=== PATIENT | female | born 1970 | race Caucasian/White ===

== ENCOUNTER 2017-03-25 09:38 | Emergency (ER) | payer OTHER, MEDICARE ==
[~2017-03-25] VITALS: Ht 157.5 cm; Wt 49.9 kg
[2017-03-25 09:51] VITALS: BP 155/91
--- NOTE | 2017-03-25 10:25 | PHYS DOC ---
General Chief Complaint: LOWER EXTREMITY SWELLING Stated Complaint: LEFT LEG PAIN Time Seen by MD: 09:55 Source: patient Exam Limitations: no limitations Problems: History of Present Illness Initial Comments Pt is 46/F to ED c/o left leg pain/swelling. Pt states approximately two weeks ago she noticed swelling superolateral to her left patella. She denies any injury or other potential inciting event. Thru the course of the past two weeks the swelling has worsened and pt feels an area in her posterior left calf "that feels like a million little needles." She is able to walk with discomfort. No knee or ankle joint pains, no popping/ clicking or joint instability. She had similar symptoms in the past which resolved spontaneously without seeking medical assistance. She says she would wait this situation out as well but her daughter is getting in two weeks and she is hoping to resolve this quickly. [facility] and [facility] directed to the ED to r/o DVT. Pt denies fever/chills/malaise/lethargy/weakness/cp/sob/diaz/focal neurologic deficit. Pt takes ASA daily, denies other chronic medical problems. No smoking history, pt hasn't been sedentary is normally very active and denies FH rheumatologic/hematologic disorders. Onset: other Severity: moderate Pain/Injury Location: left knee, left foot, left ankle Method of Injury: unknown Modifying Factors: worse with jarring, worse with movement, improves with rest Allergies: Coded Allergies: No Known Drug Allergies (Unverified , 03/25/17) Past Medical History Medical History: no pertinent history Surgical History: noncontributory (CS, LEEP) Social History Smoker: non-smoker Alcohol: occasionally Drugs: none Review of Systems Constitutional: denies chills, denies diaphoresis, denies fever, denies malaise EENTM: denies eye pain, denies double vision, denies ear pain, denies nose pain Respiratory: denies cough, denies shortness of breath, denies wheezing Cardiovascular: see HPI, denies chest pain, denies palpitations, denies syncope Gastrointestinal: denies abdominal pain, denies nausea, denies vomiting Musculoskeletal: see HPI Psychiatric/Neurological: denies headache, denies numbness, denies paresthesia Physical Exam General Appearance: WD/WN, no apparent distress HEENT: normal ENT inspection Neck: non-tender, supple Cardiovascular/Respiratory: normal peripheral pulses, no respiratory distress Back: no CVA tenderness, no vertebral tenderness Knees: left knee joint effusion (1+), left knee swelling, left knee other ( exam limited by calf pain: no bony TTP or obvious ligamentous laxity, no soft tissue TTP) Ankles: left ankle soft tissue tenderness, left ankle swelling Feet: left foot soft tissue tenderness, left foot swelling (left foot/ankle +3 pitting LE edema with +Shae's, no palpable soft tissue or bony deformity) Neurologic/Tendon: normal sensation, normal motor functions, normal tendon functions, responds to pain, no evidence tendon injury Psychiatric: alert, oriented x 3 Skin: warm/dry (no erythema or rash) Orders, Labs, Meds Left Ankle, Left Knee: no acute osseous abnormality, interpreted by Dr Zuleta. 1131: Time in department 1h 55min. US and labs remain pending, pt will have prolonged ED course due to RAD and lab delay. PATIENT: ALEX ALVARADO ACCOUNT: [id number] : 1970 LOCATION: ER AGE: 46 SEX: F EXAM STATUS: REG ER ORD. PHYSICIAN: DULCE ZULETA DO REASON: pain/swelling PROCEDURE: VENOUS LOWER EXTREMITY LEFT Left lower extremity venous duplex study 03/25/2017 Clinical History: Left leg swelling for 2 weeks.. Technique: Using a combination of real time ultrasound imaging and color-flow and pulse Doppler imaging techniques along with graded compression and augmentation, duplex evaluation of the deep venous system of the left lower extremity was performed. Multiple images were obtained. Findings: There is no sonographic evidence of deep venous thrombosis involving the visualized deep venous structures of the left lower extremity. Prominent likely reactive lymph nodes are seen in the left inguinal region. These measure 1 to 2.2 cm in size. Complex oval-shaped cystic structures are seen within the superior left calf which measure 7.3, 4 and 3 cm in size. These may represent popliteal cysts. Fluid is seen in the region of the suprapatellar bursa extending laterally. Impression: There is no sonographic evidence of deep venous thrombosis involving the visualized deep venous structures of the left lower extremity. DICTATED AND SIGNED BY: ABEL FLOREZ MD DATE: 03/25/17 1201 CC: DULCE ZULETA DO; SABA SALAZAR ~ d-dimer 5.56, CRP 100.7, ESR 69 No new or progressive sx thru ED course. I discussed findings with pt at length. No trauma, +swelling and elevation of inflammatory markers. I discussed treatment options, pt refuses crutches and is resistant to any activity or work restrictions. Steroids started empirically, pt will follow closely with her doctor. VSS thru ED course. Departure Time of Disposition: 13:16 Disposition: 01 HOME, SELF-CARE Diagnosis: left leg swelling NOS Condition: GOOD Patient Instructions: Crutch Use, [id number] Additional Instructions: Nonweight bearing crutches only. Keep left leg elevated. JENNIFER hose/compression stockings. Rx: prednisone, norco 5mg #10 Follow up with your doctor tomorrow for recheck. May need orthopedics. Return to ED with new or changing symptoms. DULCE ZULETA DO Mar 25, 2017 10:25
--- NOTE | 2017-03-25 10:59 | RAD ---
Three-view left ankle radiographs 03/25/2017 Clinical history: Left ankle pain with swelling for 2 weeks. AP, lateral and oblique digital radiographs of the left ankle were obtained. The left ankle mortise is intact. No fracture or dislocation of the left ankle is seen. Very mild degenerative changes are seen involving the left ankle joint. Impression: No fracture or dislocation of the left ankle is seen.
--- NOTE | 2017-03-25 11:02 | RAD ---
Three-view left knee radiographs 03/25/2017 Clinical history: Left knee pain and swelling for 2 weeks. AP, lateral and oblique digital radiographs of the left knee were obtained. No fracture or dislocation of the left knee is seen. There is to be small to moderate-sized left suprapatellar joint effusion. Very mild degenerative changes are seen involving all 3 compartments of the left knee. Impression: No acute osseous abnormality is seen.
[2017-03-25 11:04] LABS: BASO # 0.1 x10^3/uL (0.0-0.2); BASO % 1 % (0-3); EOS # 0.1 x10^3/uL (0.0-0.7); EOS % 2 % (0-3); HEMATOCRIT 41.7 % (36.0-47.0); HEMOGLOBIN 13.8 g/dL (12.0-15.5); LYMPH % 18 % (24-48); MEAN CORPUSCULAR HEMOGLOBIN 33 pg (25-35); MEAN CORPUSCULAR HGB CONC 33 g/dL (31-37); MEAN CORPUSCULAR VOLUME 99 fL (79-100); MONO # 0.7 x10^3/uL (0.0-1.1); MONO % 12 % (0-9); NEUT # 3.7 x10^3uL (1.8-7.7); NEUT % 67 % (31-73); PLATELET COUNT 319 x10^3/uL (140-400); RED BLOOD COUNT 4.21 x10^6/uL (3.50-5.40); RED CELL DISTRIBUTION WIDTH 13.7 % (11.5-14.5); WHITE BLOOD COUNT 5.6 x10^3/uL (4.0-11.0)
[2017-03-25 11:10] LABS: C REACTIVE PROTEIN 100.7 mg/L (0-3.3); CREATININE 0.7 mg/dL (0.6-1.0); GFR 90.5; POTASSIUM 3.8 mmol/L (3.5-5.1)
--- NOTE | 2017-03-25 12:09 | RAD ---
Left lower extremity venous duplex study 03/25/2017 Clinical History: Left leg swelling for 2 weeks.. Technique: Using a combination of real time ultrasound imaging and color-flow and pulse Doppler imaging techniques along with graded compression and augmentation, duplex evaluation of the deep venous system of the left lower extremity was performed. Multiple images were obtained. Findings: There is no sonographic evidence of deep venous thrombosis involving the visualized deep venous structures of the left lower extremity. Prominent likely reactive lymph nodes are seen in the left inguinal region. These measure 1 to 2.2 cm in size. Complex oval-shaped cystic structures are seen within the superior left calf which measure 7.3, 4 and 3 cm in size. These may represent popliteal cysts. Fluid is seen in the region of the suprapatellar bursa extending laterally. Impression: There is no sonographic evidence of deep venous thrombosis involving the visualized deep venous structures of the left lower extremity.
[2017-03-25 12:10] LABS: SEDIMENTATION RATE 69 (0-25)
== END 2017-03-25 13:31 | disposition home or self-care (01) ==
LOC: ER 09:38
DX: R22.42 Localized swelling, mass and lump, left lower limb (principal); M79.605 Pain in left leg
CPT/HCPCS: 36415; 73562; 73610; 80048; 83605; 85025; 85379; 85651; 86140; 93971; 99285-25

== ENCOUNTER → 2017-09-28 | Outpatient (CLI) | payer OTHER, MEDICARE ==
[2017-09-28 22:04] LABS: BILIRUBIN,URINE NEG (NEG); CLARITY,URINE CLEAR; COLOR,URINE STRAW; GLUCOSE,URINE NEG (NEG); NITRITE,URINE NEG (NEG); RBC,URINE RARE /HPF (0-2); UROBILINOGEN,URINE 0.2 mg/dL (0.2 mg/dL)
[2017-09-28 22:05] LABS: BACTERIA,URINE FEW /HPF (0-FEW); SQUAMOUS EPITHELIAL CELL,UR MANY /LPF; WBC,URINE OCC /HPF (0-4)
[2017-09-29 01:08] LABS: C3 COMPLEMENT 110 mg/dL (82-167); C4 COMPLEMENT 23 mg/dL (14-44)
[2017-09-29 09:07] LABS: UR CREATININE RD 22.8 mg/dL (Not Estab.); UR PROTEIN RD <4.0 mg/dL (Not Estab.)
[2017-10-01 15:07] LABS: RNP ANTIBODY <0.2 AI (0.0-0.9); SCL 70 ANTIBODY <0.2 AI (0.0-0.9); SMITH ANTIBODY <0.2 AI (0.0-0.9); SSA ANTIBODY <0.2 AI (0.0-0.9); SSB ANTIBODY <0.2 AI (0.0-0.9)
== END | disposition home or self-care (01) ==
LOC: LAB 15:24
DX: R76.8 Other specified abnormal immunological findings in serum (principal)
CPT/HCPCS: 36415; 81001; 82570; 84156; 86160; 86235; 87801

== ENCOUNTER → 2018-09-12 | Outpatient (CLI) | payer MEDICARE, OTHER ==
[2018-09-12 10:12] LABS: BASO # 0.1 x10^3/uL (0.0-0.2); BASO % 1 % (0-3); EOS # 0.1 x10^3/uL (0.0-0.7); EOS % 1 % (0-3); HEMATOCRIT 41.2 % (36.0-47.0); HEMOGLOBIN 13.9 g/dL (12.0-15.5); LYMPH % 17 % (24-48); MEAN CORPUSCULAR HEMOGLOBIN 33 pg (25-35); MEAN CORPUSCULAR HGB CONC 34 g/dL (31-37); MEAN CORPUSCULAR VOLUME 97 fL (79-100); MONO # 0.6 x10^3/uL (0.0-1.1); MONO % 11 % (0-9); NEUT # 4.1 x10^3uL (1.8-7.7); NEUT % 70 % (31-73); PLATELET COUNT 367 x10^3/uL (140-400); RED BLOOD COUNT 4.26 x10^6/uL (3.50-5.40); RED CELL DISTRIBUTION WIDTH 14.2 % (11.5-14.5); WHITE BLOOD COUNT 5.8 x10^3/uL (4.0-11.0)
[2018-09-12 10:20] LABS: ALBUMIN 3.7 g/dL (3.4-5.0); ALBUMIN/GLOBULIN RATIO 0.8 (1.0-1.7); C REACTIVE PROTEIN 88.7 mg/L (0-3.3); CALCIUM 9.8 mg/dL (8.5-10.1); CREATININE 0.7 mg/dL (0.6-1.0); GFR 89.7; POTASSIUM 4.1 mmol/L (3.5-5.1); TOTAL BILIRUBIN 0.7 mg/dL (0.2-1.0); TOTAL PROTEIN 8.1 g/dL (6.4-8.2); URIC ACID 3.2 mg/dL (2.6-6.0)
[2018-09-12 11:27] LABS: SEDIMENTATION RATE 43 (0-25)
== END | disposition home or self-care (01) ==
LOC: LAB 09:38
PROVIDERS: ATTEND Nurse Practitioner Family
DX: M25.462 Effusion, left knee (principal)
CPT/HCPCS: 36415; 80053; 84550; 85025; 85651; 86140

== ENCOUNTER → 2018-10-08 | Outpatient (CLI) | payer MEDICARE, OTHER ==
--- NOTE | 2018-10-08 16:51 | RAD ---
Examination: CT of the left knee without contrast HISTORY: History of osteoarthritis left knee, knee joint effusion COMPARISON: None available TECHNIQUE: Axial CT images of the left knee was performed without contrast. Coronal and sagittal reformats are performed Exposure: One or more of the following individualized dose reduction techniques were utilized for this examination: 1. Automated exposure control 2. Adjustment of the mA and/or kV according to patient size 3. Use of iterative reconstruction technique FINDINGS: The alignment of the knee joint grossly appears unremarkable. No acute fracture or dislocation identified. Mild joint space loss identified in the medial compartment of the knee joint. Moderate knee joint effusion identified. The extensor mechanism appears intact. IMPRESSION: 1. Moderate knee joint effusion. 2. Mild degenerative changes medial compartment. Electronically signed by: Sudhakar Bardales MD (10/08/2018 4:48 PM) [id number]
== END | disposition home or self-care (01) ==
LOC: CT 15:21
PROVIDERS: ATTEND Nurse Practitioner Family
DX: M25.462 Effusion, left knee (principal); M17.12 Unilateral primary osteoarthritis, left knee
CPT/HCPCS: 73700